=== PATIENT | female | born 1985 | race Caucasian/White ===

== ENCOUNTER 2023-06-27 08:08 | Inpatient (IN) | payer SELFPAY ==
[2023-06-27] VITALS (21 sets, daily range): BP systolic 103–184; BP diastolic 55–96; PULSE 80–110; RESP 16–18; TEMP 36.2–37; O2SAT 99; BMI 41.8
--- NOTE | 2023-06-27 08:35 | PM.OBGYHP ---
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 Patient denies leakage of fluid or vaginal bleeding. She complained of rectal pressure which had resolved. Upon nursing evaluation and cervical exam patient cervix was 8 to 9 cm 90% effaced -2 vertex presentation. On review of admission, patient declined IV fluid, and she also declined GBS treatment for unknown GBS. Risk of pneumonia and possible explained patient continues to decline. 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 record reviewed patient smallest baby 6 pounds 16 ounces, largest baby 10 pounds 2 ounces. 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 [id number]) Present Details : 10 Para: 7 Review of Systems General: Reports: 10 or more systems reviewed and unremarkable except in HPI and below Medications/Allergies Home Medications Medication Instructions Recorded Confirmed Last Taken Type No Known Home Medications 06/27/23 06/27/23 Unknown History Allergies Allergy/AdvReac Type Severity Reaction Status Date / Time No Known Allergies Allergy Verified 06/27/23 08:21 PFSH CAREER RESOURCE SPECIALIST PFSH: Medical History (Updated 06/27/23 @ 08:46 by Gaye Bell DO) Umbilical hernia History History History 10 Term 7 2 Miscarriages/Ectopic 2 Living Children 5 Vitals/I&O/Wt Last Vital Signs Pulse 103 H 06/27/23 08:31 BP 154/70 06/27/23 08:31 Weight last 48 hrs Weight 103.873 kg Physical Exam Narrative: 38-year-old female alert and oriented x 3 no acute distress, breathing well with contractions. HENMT: HEAD & SCALP: normal to inspection Cardio: COMMON NORMALS: regular rate and regular rhythm Back/Pelvis: OTHER: Abdomen?gravid, nontender to palpation. Pelvic exam?cervix 8 to 9 cm / 90%/-2 vertex presentation membranes intact. Extremity: NARRATIVE EXTREMITY EXAM: Mild nonpitting edema negative Homans' sign. Neuro: COMMON NORMALS: patient oriented x3, CN's II-XII intact bilaterally, moves all extremities and deep tendon reflexes 2+ bilaterally Results Labs OB ([facility]): Hct 38.6 % (36-47) 06/27/23 Hgb 12.70 g/dL (11.27-16.99) 06/27/23 Plt Count 193 10^3/cmm (157-399) 06/27/23 A&P Assessment and plan (1) 40 weeks gestation of : (2) Grand multiparity with current in third trimester: (3) Active labor: Patient decline antibiotic treatment for unknown GBS. Patient declines IV fluid hydration. Note; discussed risk of untreated GBS to the baby. Also discussed risk of not having IV access. Plan Admitted to labor and delivery for management of labor. Attestations Medical Necessity Statement*: Admission to labor and delivery for management of labor. Coding Level of Care Code Acute Code for Chg Fwd Diagnoses 40 weeks gestation of Z3A.40 Grand multiparity with current in third trimester O09.43 Active labor
[2023-06-27 08:50] LABS: Basophils % 0.2 %; Eosinophils % 0.2 %; Hematocrit 38.6 % (36-47); Lymphocytes # 1.1 10^3/uL (0.8-4.8); Lymphocytes % 11.6 %; Mean Corpuscular HGB Conc 32.9 g/dL (30-55); Mean Corpuscular Hemoglobin 29.3 pg (27-33); Mean Corpuscular Volume 88.9 fl (85-98); Monocytes # 0.5 10^3/uL (0.2-0.9); Monocytes % 4.6 %; Neutrophils # 8.13 10^3/uL (1.8-7.7); Neutrophils % 83.1 %; Nucleated Red Blood Cells % 0 %; Platelet Count 193 10^3/cmm (157-399); Red Blood Count 4.34 10^6/uL (3.85-5.65); Red Cell Distribution Width 13.9 % (12.1-15.1); White Blood Count 9.78 10^3/uL (3.29-11.43)
--- NOTE | 2023-06-27 11:14 | PM.DELIVERY ---
Delivery Note: Date of delivery: June 27, 2023 Pre-delivery diagnoses: 40 weeks gestation Grand multiparity Active labor Procedure: viable female Op report anesthesia: None Delivering Physician: Gaye Bell DO Estimated blood loss (mL): 300 Findings: Viable female Delivery: 38-year-old female delivered via a viable female that rotated from OP to ANNEMARIE and presented on the perineum after much resistance to pushing. The anterior followed by the posterior shoulders were delivered with the remainder of the baby's body to follow. Robust cry was noted. Delay of clamping the cord followed by clamping the cord and transecting between the clamps. The baby was then placed on mother's abdomen and chest for bonding. Cord blood was obtained and handed off. The placenta presented in a Mart presentation with trailing membranes. The uterus was massaged and firmed well with approximately 300 mL of blood loss. The patient refused Pitocin and any other IV solution. Explained will need monitoring closely and advise Pitocin IV solution if bleeding becomes brisk. Patient again declines Pitocin solution in the IV. A small laceration of the perineum was noted patient refuses a simple interrupted stitch. Pressure applied to the site. The uterus was again massaged with minimal bleeding. The perineum was cleansed drapes changed. Mother and are both in stable and satisfactory condition Post-Delivery Status: Stable History History History 10 Term 7 2 Miscarriages/Ectopic 2 Living Children 5 A&P Assessment and plan (1) Spontaneous vaginal delivery: (2) Grand multiparity with current in third trimester: (3) 40 weeks gestation of : Plan Begin care. Coding Level of Care Code Acute Code for Chg Fwd Diagnoses Spontaneous vaginal delivery O80 Grand multiparity with current in third trimester O09.43 40 weeks gestation of Z3A.40
[2023-06-28 04:00] VITALS: BP 122/82; PULSE 78; RESP 18; TEMP 36.9; O2SAT 96
[2023-06-28 05:51] LABS: Hematocrit 38.6 % (36-47); Mean Corpuscular HGB Conc 32.6 g/dL (30-55); Mean Corpuscular Hemoglobin 28.6 pg (27-33); Mean Corpuscular Volume 87.7 fl (85-98); Mean Platelet Volume 11.7 fL (7.4-10.4); Platelet Count 188 10^3/cmm (157-399)
--- NOTE | 2023-06-28 08:53 | P.DS_ITS ---
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 Patient's stay has progressed well. Patient is ambulating tolerating regular diet voiding and caring for without nursing assistance. expectations have been reviewed to include no strenuous activity no sexual activity x 6 weeks, patient is breast-feeding and encouraged to continue vitamins with a high-fiber diet and increased hydration. VSS, afebrile Exam?abdomen soft fundus firm below the umbilicus. Lochia light Extremities?no edema, negative Homans' sign. Information Peripartum Data: Delivery Method: Vaginal Physical Exam Narrative: 38-year-old female alert and oriented x 3 no acute distress, breathing well with contractions. Const: COMMON NORMALS: patient oriented x3 HENMT: HEAD & SCALP: normal to inspection Cardio: COMMON NORMALS: regular rate and regular rhythm RATE: regular rate RHYTHM: regular rhythm Back/Pelvis: OTHER: Abdomen?gravid, nontender to palpation. Pelvic exam?cervix 8 to 9 cm / 90%/-2 vertex presentation membranes intact. Extremity: NARRATIVE EXTREMITY EXAM: Mild nonpitting edema negative Homans' sign. Neuro: COMMON NORMALS: patient oriented x3, CN's II-XII intact bilaterally, moves all extremities and deep tendon reflexes 2+ bilaterally History History History 10 Term 7 2 Miscarriages/Ectopic 2 Living Children 5 Past Pregnancies Del. Date GA/Weeks Outcome Route Wt Inf Gender Labor Lgth Comp. Anesth esia Location 06/27/23 40 live - full term Vaginal Female Discharge Data Studies Completed and Pending Laboratory Results WBC 9.80 10^3/uL (3.29-11.43) 06/28/23 04:40 RBC 4.40 10^6/uL (3.85-5.65) 06/28/23 04:40 Hgb 12.60 g/dL (11.27-16.99) 06/28/23 04:40 Hct 38.6 % (36-47) 06/28/23 04:40 MCV 87.7 fl (85-98) 06/28/23 04:40 MCH 28.6 pg (27-33) 06/28/23 04:40 MCHC 32.6 g/dL (30-55) 06/28/23 04:40 RDW 14.0 % (12.1-15.1) 06/28/23 04:40 Plt Count 188 10^3/cmm (157-399) 06/28/23 04:40 MPV 11.7 fL (7.4-10.4) H 06/28/23 04:40 Neut % (Auto) 83.1 % 06/27/23 08:42 Lymph % (Auto) 11.6 % 06/27/23 08:42 Butts % (Auto) 4.6 % 06/27/23 08:42 Eos % (Auto) 0.2 % 06/27/23 08:42 Baso % (Auto) 0.2 % 06/27/23 08:42 Neut # (Auto) 8.13 10^3/uL (1.8-7.7) H 06/27/23 08:42 Lymph # (Auto) 1.1 10^3/uL (0.8-4.8) 06/27/23 08:42 Butts # (Auto) 0.5 10^3/uL (0.2-0.9) 06/27/23 08:42 Eos # (Auto) 0.0 10^3/uL (0.0-0.8) 06/27/23 08:42 Baso # (Auto) 0.0 10^3/uL (0.0-0.1) 06/27/23 08:42 Nucleated RBC % (auto) 0 % 06/27/23 08:42 Nucleated RBCs # 0.0 /100WBC 06/27/23 08:42 Procedures Performed Management of labor with viable female Vitals Last Vital Signs Temp 98.5 F 06/28/23 04:00 Pulse 78 06/28/23 04:00 Resp 18 06/28/23 04:00 BP 122/82 06/28/23 04:00 Pulse Ox 96 06/28/23 04:00 O2 Del Method Room Air 06/28/23 04:00 Results Labs OB ([facility]): Hct 38.6 % (36-47) 06/28/23 Hgb 12.60 g/dL (11.27-16.99) 06/28/23 Plt Count 188 10^3/cmm (157-399) 06/28/23 Discharge Plan Discharge Patient Disposition: Home Condition: Stable Prescriptions: No Action No Known Home Medications Discharge Orders: Discharge Order (Routine); Ordered 06/28/23 Ordered By: Gaye Bell Discharge Diet: Advance as tolerated and Regular Discharge Activity: Increase activity as tolerated and Limit activity as instructed Patient Instructions: Opioid Safety Activity Restrictions/Additional Instructions: Patient advised to avoid strenuous activity and sexual intercourse x 6 weeks. Assessment: S/p viable female Plan of Treatment: Discharge to home patient to follow-up with medical payment poster. Patient to return to [facility] if excessive bleeding or excessive pain occurs. 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
[2023-06-28 13:20] VITALS: BP 120/79; PULSE 97; RESP 16; TEMP 36.6; O2SAT 99
== END 2023-06-28 13:35 | disposition home or self-care (01) | DRG 807 ==
PROVIDERS: Admitting Provider Obstetrics & Gynecology; Visit Provider Obstetrics & Gynecology
DX: O48.0 Post-term pregnancy (principal); Z37.0 Single live birth; Z3A.40 40 weeks gestation of pregnancy; O70.9 Perineal laceration during delivery, unspecified
CPT/HCPCS: 36415; 59025; 59409; 85025; 85027; 99211; G0379